=== PATIENT | female | born 1965 | race Caucasian/White ===

== ENCOUNTER 2024-05-27 07:58 | Outpatient (OUT) | payer OTHER, SELFPAY ==
[2024-05-27 08:22] LABS: Basophils Absolute Auto 0.1 10^3/uL (0.0-0.1); Eosinophils Absolute Auto 0.1 10^3/uL (0.0-0.7); Eosinophils Percent Auto 1.5 % (0.9-7.0); Hematocrit 42.6 % (36.0-48.0); Hemoglobin 14.3 g/dL (12.0-16.0); Immature Granulocytes Abs Auto 0.01 10^3/uL (0.00-0.03); Immature Granulocytes Pct Auto 0.2 % (0.0-0.5); Lymphocytes Absolute Auto 1.2 10^3/uL (1.2-3.8); Lymphocytes Percent Auto 25.9 % (20.5-60.0); Mean Corpuscular HGB Conc 33.6 g/dL (29.9-35.2); Mean Corpuscular Hemoglobin 30.4 pg (26.7-34.0); Mean Corpuscular Volume 90.4 fL (81.0-99.0); Mean Platelet Volume 10.7 fL (9.5-13.5); Monocytes Absolute Auto 0.4 10^3/uL (0.3-0.8); Monocytes Percent Auto 7.9 % (1.7-12.0); Neutrophils Percent Auto 63.5 % (43.0-75.0); Platelet Count 205 10^3/uL (150-450); Red Blood Count 4.71 10^6/uL (4.20-5.40); Red Cell Distribution Width 12.4 % (11.0-15.0); White Blood Count 4.8 10^3/uL (4.0-11.0)
[2024-05-27 09:00] LABS: Alanine Aminotransferase 18 U/L (14-59); Albumin Globulin Ratio 1.3; Alkaline Phosphatase 48 U/L (46-116); Anion Gap 12.2; Aspartate Amino Transferase 15 U/L (15-37); BUN Creatinine Ratio 17.8; Bilirubin Total 0.5 mg/dL (0.2-1.0); Carbon Dioxide 28.1 mmol/L (21.0-32.0); Chloride 103 mmol/L (98-107); Chol HDL Ratio 2.6; Cholesterol 182 mg/dL (<=200); Estimated GFR (African America >60 (>=60); Estimated GFR (Non-African Ame 53 (>=60); Globulin 3.1 g/dL; Glucose 99 mg/dL (74-106); HDL Cholesterol 70 mg/dL (40-60); Potassium 4.3 mmol/L (3.5-5.1); Sodium 139 mmol/L (136-145); Total Protein 7.1 g/dL (6.4-8.2); Triglycerides 59 mg/dL (<=150); VLDL CHOLESTEROL 11.8 mg/dL
== END 2024-05-27 07:59 | disposition home or self-care (01) ==
LOC: LAB 07:58
PROVIDERS: PCP Internal Medicine; Visit Provider Internal Medicine
DX: Z00.00 Encounter for general adult medical examination without abnormal findings (principal)
CPT/HCPCS: 36415; 80053; 80061; 85025

== ENCOUNTER 2025-01-06 07:45 | Outpatient (OUT) | payer OTHER, SELFPAY ==
--- OUTSIDE RECORDS SUMMARY | 2025-01-06 07:48 | XMS_ITS | CCD ---
Author Organization [facility] Care Team Providers Care Improvement Lead Name Role Phone Yohannes Newman Primary Care Provider [phone] Ryley Newman DO Primary Care Provider Ryley Newman Unavailable Asaad, Imad Unavailable MD Thony Cooper Attending Provider DO Ryley Newman Primary Care Provider [phone] Asaad, Imad Admitting Unavailable Ankurad, Imad Attending Unavailable Ryley Newman Primary Care Unavailable JOVAN, DR FAROOQ Admitting Unavailable BALL, DR FAROOQ Attending Unavailable JOVAN, DR FAROOQ Primary Care Unavailable JOVAN, DR FAROOQ Consulting Unavailable JOVAN, DR FAROOQ Admitting Unavailable JOVAN, DR FAROOQ Attending Unavailable JOVAN, DR FAROOQ Primary Care Unavailable BALL, DR FAROOQ Consulting Unavailable FILE, MARIAM Admitting Unavailable FILE, MARIAM Attending Unavailable JOVAN, DR FAROOQ Primary Care Unavailable FILE, MARIAM Quevedo Unavailable Ryley Newman DO Primary Care Provider Yohannes Newman Primary Care Provider [phone] HAYLIE MEDELLIN Attending Unavailable Ryley Newman DO Primary Care Provider RYLEY NEWMAN Primary Care Unavailable FILE, MARIAM Norton Attending Unavailable FILE, MARIAM Norton Referring Unavailable RYLEY NEWMAN Primary Care Unavailable JEAN HILL Referring Unavailable RYLEY NEWMAN Primary Care Unavailable RYLEY NEWMAN Primary Care Unavailable JEAN HILL Referring Unavailable MARIELLA VELASQUEZ Attending Unavailable Allergies Allergy Classification Reported Allergen(s) Allergy Type Date of Onset Reaction(s) Facility (20 sources) Penicillins; Translations: [PENICILLINS] Propensity to adverse reactions 5 [facility] Work Phone: (1 source) Penicillins Drug allergy (disorder) 3 [facility]ository (1 source) Penicillins Drug allergy (disorder) 5 [facility] Rep[facility] (1 source) Penicillins Propensity to adverse reactions 5 [facility] Work Phone: Medications Current Medications Medication Drug Class(es) Dates Sig (Normalized) Sig (Original) aspirin 81 mg delayed release oral tablet (20 sources) Platelet Aggregation Inhibitor, Nonsteroidal Anti-inflammatory Drug Start: 06-09-2019 take 1 tablet by mouth once daily aspirin, enteric coated (ECOTRIN LOW STRENGTH) 81 mg EC tablet Take 1 tablet by mouth once daily. 06/09/2019 Active Comment on above: Take 1 tablet by oanh th once daily. calcium carbonate 1250 mg oral tablet (6 sources) take 1 tablet by mouth every twelve hours Calcium 500 MG 1 tablet with meals Orally Twice a day Active CALCIUM CITRATE/VITAMIN D3 (CITRACAL + D ORAL) (20 sources) CALCIUM CITRATE/VITAMIN D3 (CITRACAL + D ORAL) Take by mouth once daily. Active CALCIUM CITRATE/ VITAMIN D3 (CITRACAL + D ORAL) Take by mouth once daily. 0 Active Comment on above: Take by mouth once d aily. cholecalciferol 0.05 mg oral tablet (20 sources) Vitamin D Start: 01-08-20 11 take 1 tablet by mouth once daily cholecalciferol (VITAMIN D3) 50 mcg (2,000 unit) tablet Take 1 tablet by mouth once daily. 0 01/07/2011 Active take 1 tablet by oanh th every twenty-four hours Vitamin D 50 MCG (2000 UT) 1 tablet Orally Once a day Active Comment on above: Take 1 tablet by oanh th once daily. Clenpiq 10-3.5-12 MG-GM -GM/175ML (3 sources) Start: 01-11-2023 Clenpiq 10-3.5-12 MG-GM -GM/175ML 175ml at 3pm, 175ml at 9pm Orally twice a day for 1 days Dec, Active Fish Oils (6 sources) take 1 capsule by mouth once daily Fish Oil 1000 MG 1 capsule Orally Once a day Active iv contrast (will be provided with radiology test) (2 sources) Start: 06-10-2023 End: 06-11-2023 iv contrast (will be provided with radiology test) MRI Breast ALONA Inject, intravenously, once for 1 dose. No IV access, insert saline lock prior to the beginning of sedation, infusion, injection of imaging exam. Discontinue saline lock post exam. If Pt has a central line or IVAD, may access for administration according to line specific nursing protocol. Once exam is complete flush line and de-access according to line specific nursing protocol in the MR contrast administration guidelines link 1 Each 0 06/10/2023 06/11/2023 Active Start: 11-27-2022 End: 11-28-2022 iv contrast (will be provide d with radiology test) MRI Breast ALONA Inject, intravenously, once for 1 dose. No IV access, insert saline lock prior to the beginning of sedation, infusion, injection of imaging exam. Discontinue saline lock post exam. If Pt has a central line or IVAD, may access for administration according to line specific nursing protocol. Once exam is complete flush line and de-access according to line specific nursing protocol in the MR contrast administration guidelines link 1 Each 0 11/27/2022 11/28/2022 Active Comment on above: MRI Breast ALONA Injec t, intravenously, once for 1 dose. No IV access, insert saline lock prior to the beginning of sedation, infusion, injection of imaging exam. Discontinue saline lock post exam. If Pt has a central line or IVAD, may access for administration according to line specific nursing protocol. Once exam is complete flush line and de-access according to line specific nursing protocol in the MR contrast administration guidelines link [id number]-dha-epa- phospho-ast 441-72-68-50 mg cap (20 sources) take 3 capsules by mouth once daily ssbiu-xk-0-dha-epa -phospho-ast 818-43-66-50 mg cap Take by mouth once daily. Active take 3 capsules by m outh once daily vvfoj-ot-7-snc-vst-keqnhof-ast 300-90-24 -50 mg cap Take by mouth once daily. 0 Active Comment on above: Take by mouth once d aily. Multi For Her - (6 sources) Multi For Her - as directed Orally Active multivitamin ORAL tablet (20 sources) Start: 1 take 1 tablet by mouth once daily multivitamin ORAL tablet Take 1 tablet by mouth once daily. 100 tablet 4 01/07/2011 Active Comment on above: Take 1 tablet by oanh th once daily. Multivitamin preparation (1 source) Start: 3 take 1 tablet by mouth once daily Multivitamin Active 1 TAB PO Daily January 22, 2023 12:00am polyethylene glycol 3350 [id number] mg / potassium chloride 2970 mg / sodium bicarbonate 6740 mg / sodium chloride 5860 mg / sodium sulfate 83959 mg powder for oral solution (5 sources) Osmotic Laxative Start: 3 take 236 g by mouth once daily Golytely 236 GM as directed Orally once daily for 1 days Nov, Active Problems Active Problems Problem Classification Problem Date Documented Date Episodic/Chronic Nonmalignant breast conditions (20 sources) Fibrocystic changes of bilateral breasts; Translations: [Diffuse cystic mastopathy of right breast] Onset: 10-09-2015 Chronic Nutritional deficiencies (7 sources) Vitamin D deficiency; Translations: [Vitamin D deficiency, unspecified] Chronic Osteoporosis (20 sources) Postmenopausal osteoporosis; Translations: [Age-related osteoporosis without current pathological fracture] Onset: 05-29-2022 Chronic Other aftercare (6 sources) Patient encounter status; Translations: [Other halfway (current) drug therapy] Episodic Other aftercare (2 sources) Long-term current use of drug therapy; Translations: [Other halfway (current) drug therapy] 07-05-2024 Episodic Other non-traumatic joint disorders (6 sources) Arthralgia of the pelvic region and thigh; Translations: [Pain in right hip] Episodic Residual codes; unclassified (1 source) Postmenopausal state; Translations: [Asymptomatic menopausal state] Episodic Residual codes; unclassified (1 source) History of breast biopsy with benign finding; Translations: [Other specified postprocedural states] 07-05-2024 Episodic Thyroid disorders (9 sources) Subclinical hypothyroidism; Translations: [Other specified hypothyroidism] Onset: 01-28-2023 Chronic Unclassified (1 source) Encounter for screening for malignant neoplasm of colon; Translations: [Encounter for screening for malignant neoplasm of colon] Onset: 01-22-2023 Unclassified (1 source) Dense breasts; Translations: [Dense breasts] Onset: 08-03-2014 Past or Other Problems Problem Classification Problem Date Documented Date Episodic/Chronic Esophageal disorders (6 sources) Esophageal disorders; Translations: [Gastro-esophageal reflux disease with esophagitis, without bleeding] Nonmalignant breast conditions (19 sources) Breast finding ; Translations: [Dense breasts] Onset: 07-08-2011 Resolved: 11-28-2018 08-03-2014 Episodic Other aftercare (2 sources) Other rat exterminator (current) drug therapy; Translations: [OTH SENIOR CARE CURRENT DRUG THERAPY] Onset: 12-25-2022 Episodic Other bone disease and musculoskeletal deformities (20 sources) Osteopenia; Translations: [Other specified disorders of bone density and structure, unspecified site] Onset: 06-09-2019 Episodic Other female genital disorders (20 sources) Vaginal dryness; Translations: [Other specified noninflammatory disorders of vagina] Onset: 11-28-2018 11-28-2018 Episodic Other female genital disorders (1 source) Other specified noninflammatory disorders of vagina; Translations: [Vaginal dryness] Onset: 11-28-2018 Episodic Other screening for suspected conditions (not mental disorders or infectious disease) (20 sources) Inconclusive mammography finding; Translations: [Inconclusive mammogram] Onset: 08-03-2014 Episodic Residual codes; unclassified (20 sources) Family history of breast cancer; Translations: [Family history of malignant neoplasm of breast] Onset: 04-28-2007 Episodic Residual codes; unclassified (1 source) Other specified postprocedural states; Translations: [History of benign breast biopsy] Onset: 07-05-2024 Episodic Residual codes; unclassified (1 source) Family history of malignant neoplasm of breast; Translations: [Family history of breast cancer] Onset: 07-05-2024 Episodic Results Test Name Value Interpretation Reference Range Facility BD DXA - AXIAL SKELETON -NBo n 07-05-2024 BD DXA - AXIAL SKELETON -NB * * *Final Report* * * DATE OF EXAM: Jul 05 2024 8:18AM M1B 0804 - BD DXA - AXIAL SKELETON -NB / PROCEDURE REASON: multiple diagnoses * * * * Physician Interpretation * * * * EXAMINATION: DXA BONE DENSITOMETRY BD DXA TRAB BONE SCORE (TBS)-NB, BD DXA - AXIAL SKELETON -NB PATIENT DEMOGRAPHICS: Age: 58 years, Gender: Female SCANNER INFORMATION: DXA Model: [employer] [id number] Date Scanned: 07/05/2024 8:18 AM CLINICAL HISTORY: DIAGNOSTIC Osteoporosis, post menopausal Encounter for long-term (current) use of medications . RISK FACTORS FOR OSTEOPOROSIS AND ASSOCIATED FRACTURES REPORTED BY THIS PATIENT: Please refer to Bone Health Questionnaire in the EMR CURRENT THERAPY: Please refer to Bone Health Questionnaire in the EMR TECHNICAL LIMITATIONS: Degenerative disease of the spine RESULTS: Lumbar Spine (L1, L2, L3, L4): Total BMD: 0.873 g/cm2, T-score: -1.6, Z-score: -0.3 TBS T-SCORE -1.1 Lumbar spine: 05/29/22: 0.810 Statistically significant increase 7.7% Left Femoral Neck: 0.566 g/cm2, T-score -2.6, Z-score -1.3 TBS T-SCORE -2.4 Left Femoral Neck: 05/29/22: 0.526 Statistically significant increase 7.5% Left Total Hip: 0.778 g/cm2, T-score -1.3, Z-score -0.5 Left Total Hip: 05/29/22: 0.757 No statistically significant change CHANGE IS STATISTICALLY SIGNIFICANT IN THE SPINE OR HIP IF GREATER THAN OR EQUAL TO 0.04 g/cm2 VERTEBRAL FRACTURE ASSESSMENT Not performed. TRABECULAR BONE ASSESSMENT TBS score: 1.389 Bone micro-architecture: normal (> 1.310) IMPRESSION: THE LOWEST T-SCORE IS -2.6 IN THE LEFT HIP THE LOWEST TBS T-SORE -2.4 LEFT FEMORAL NECK 1) DIAGNOSIS (based on BMD alone): OSTEOPOROSIS TBS CHANGED THE DIAGNOSIS FROM OSTEOPOROSIS TO OSTEOPENIA NORMAL BONE ARCHITECTURE INCREASE IN BMD - Caution: Medical conditions other than osteoporosis may cause low bone density, such as osteomalacia or renal osteodystrophy. Clinical correlation is necessary. 2) FRACTURE RISK (based on BMD and TBS) - HIGH - Caution: Fracture risk may be increased independent of BMD in patients with corticosteroid use, age greater than 65 years, or a history of prior fragility fracture. - FRAX was not calculated: bisphosphonate currently or within the last 2 years RECOMMENDATIONS: Follow-up in 2-3 years or as clinically indicated. Patients that are taking corticosteroids, are transplant recipients or have hyperparathyroidism should have annual follow-up. Follow-up scans should always be done on the same machine for accurate comparison. FOR MORE INFORMATION ABOUT DIAGNOSIS AND TREATMENT: [facility] for Osteoporosis and Metabolic Bone Disease:? www.ccf.org/arthritis /osteo National Osteoporosis Foundation:? www.nof.org International Society of Clinical Densitometry www.iscd.org Section Maintainer: amrit Transcribe Date/Time: Jul 05 2024 8:19A Dictated by : ANTOLIN BYNUM MD This examination was interpreted and the report reviewed and electronically signed by: ANTOLIN BYNUM MD on Jul 06 2024 9:11AM EST [id number] N -2.6 Normal [facility] BD DXA TRAB BONE SCORE (TBS) -NBon 07-05-2024 BD DXA TRAB BONE SCORE (TBS)-NB * * *Final Report* * * DATE OF EXAM: Jul 05 2024 8:18AM M1B 0801 - BD DXA TRAB BONE SCORE (TBS)-NB / PROCEDURE REASON: multiple diagnoses * * * * Physician Interpretation * * * * EXAMINATION: DXA BONE DENSITOMETRY BD DXA TRAB BONE SCORE (TBS)-NB, BD DXA - AXIAL SKELETON -NB PATIENT DEMOGRAPHICS: Age: 58 years, Gender: Female SCANNER INFORMATION: DXA Model: A10 [employer] [id number] Date Scanned: 07/05/2024 8:18 AM CLINICAL HISTORY: DIAGNOSTIC Osteoporosis, post menopausal Encounter for long-term (current) use of medications . RISK FACTORS FOR OSTEOPOROSIS AND ASSOCIATED FRACTURES REPORTED BY THIS PATIENT: Please refer to Bone Health Questionnaire in the EMR CURRENT THERAPY: Please refer to Bone Health Questionnaire in the EMR TECHNICAL LIMITATIONS: Degenerative disease of the spine RESULTS: Lumbar Spine (L1, L2, L3, L4): Total BMD: 0.873 g/cm2, T-score: -1.6, Z-score: -0.3 TBS T-SCORE -1.1 Lumbar spine: 05/29/22: 0.810 Statistically significant increase 7.7% Left Femoral Neck: 0.566 g/cm2, T-score -2.6, Z-score -1.3 TBS T-SCORE -2.4 Left Femoral Neck: 05/29/22: 0.526 Statistically significant increase 7.5% Left Total Hip: 0.778 g/cm2, T-score -1.3, Z-score -0.5 Left Total Hip: 05/29/22: 0.757 No statistically significant change CHANGE IS STATISTICALLY SIGNIFICANT IN THE SPINE OR HIP IF GREATER THAN OR EQUAL TO 0.04 g/cm2 VERTEBRAL FRACTURE ASSESSMENT Not performed. TRABECULAR BONE ASSESSMENT TBS score: 1.389 Bone micro-architecture: normal (> 1.310) IMPRESSION: THE LOWEST T-SCORE IS -2.6 IN THE LEFT HIP THE LOWEST TBS T-SORE -2.4 LEFT FEMORAL NECK 1) DIAGNOSIS (based on BMD alone): OSTEOPOROSIS TBS CHANGED THE DIAGNOSIS FROM OSTEOPOROSIS TO OSTEOPENIA NORMAL BONE ARCHITECTURE INCREASE IN BMD - Caution: Medical conditions other than osteoporosis may cause low bone density, such as osteomalacia or renal osteodystrophy. Clinical correlation is necessary. 2) FRACTURE RISK (based on BMD and TBS) - HIGH - Caution: Fracture risk may be increased independent of BMD in patients with corticosteroid use, age greater than 65 years, or a history of prior fragility fracture. - FRAX was not calculated: bisphosphonate currently or within the last 2 years RECOMMENDATIONS: Follow-up in 2-3 years or as clinically indicated. Patients that are taking corticosteroids, are transplant recipients or have hyperparathyroidism should have annual follow-up. Follow-up scans should always be done on the same machine for accurate comparison. FOR MORE INFORMATION ABOUT DIAGNOSIS AND TREATMENT: [facility] Osteoporosis and Metabolic Bone Disease:? www.ccf.org/arthritis /osteo National Osteoporosis Foundation:? www.nof.org International Society of Clinical Densitometry www.iscd.org Section Maintainer: amrit Transcribe Date/Time: Jul 05 2024 8:19A Dictated by : ANTOLIN BYNUM MD This examination was interpreted and the report reviewed and electronically signed by: ANTOLIN BYNUM MD on Jul 06 2024 9:11AM EST [id number] N -2.6 Normal [facility] CNOVon 07-05-2024 CNOV Office Visit ([facility] ) JESSICA JAMES ([id number]) 1965 F Date Time Provider Department 07/05/24 10:00 AM MARIELLA VELASQUEZ During your visit today, we recorded the following information about you: Weight Height 66.7 kg 1.727 m Mariella Velasquez PA-C 07/05/2024 10:05 AM Signed MEDICAL BREAST Jessica James HISTORY of PRESENT ILLNESS: Jessica James is a 58 year old postmenopausal woman from [place], [place] (1[place] hours away) who presents to the [facility] today for her screening MRI and a follow up clinical exam. She is followed in the high risk clinic due to her extremely dense breasts, history of biopsies, and FH of breast cancer in her mother. Last seen by Jean Hill 12/2023. She presents today with her . 03/2017 she was given a prescription for tamoxifen but she decided against it. She is not interested in chemoprevention with SERM or AI. She deals with excessive vaginal dryness and dyspareunia and now has osteoporosis. She established with Dr. Marshall 11/24/2022 and started Reclast. She is not interested in vaginal estrogen for her vaginal dryness. At one point she had seriously contemplated RRM but insurance would not cover it. History pertaining to prior breast biopsies, genetic reports, pathology reports, treatment summaries, personal, social and family history has been extracted from Jean Hill's note dated 01/05/2024. Vitamin D 25 Hydroxy (ng/mL) Date Value 12/10/2023 57.2 11/28/2018 59.0 She takes Vitamin D 2000IU, Ca/D daily and MVI. BMD: 05/29/22 significant decreased of BMD of 12.8% in the left femoral neck. Tscore -2.9. She is followed by Dr. Marshall since 11/24/2022 and was given Reclast. Tolerated it well. PERSONAL BREAST HISTORY: Past breast history (prior to this encounter) is as follows: Breast biopsy: Yes, In 02/2010 she had a right core biopsy showing intraductal papilloma at 11:00. 02/2010 left core biopsy 2:00 showing radial scar and 6:00 showing benign apocrine microcysts and florid UDH. 05/2010 she had bilateral needle localization excisions showing UDH/papilloma on the right and a radial scar on the left. In 01/2011 she had a left core showing fibroadenomatous stroma and UDH. 05/2012 she had two left core biopsies at 12:00 showing stromal fibrosis 05/2015 had a left core biopsy showing stromal fibrosis and UDH. Breast cysts: No Breast surgery: Yes, as above, alona 05/2010 Breast cancer: No CANCER SURVEILLANCE: Mammograms: 01/05/2024 Gustavo - negative Breast MRI: 06/10/2023 - negative Colonoscopy: 2022, one benign polyp. Done at [facility]. RISK FACTORS FOR BREAST CANCER: Age at the onset of menses: 15 years of age. P: 1 daughter Age at the of first child: 29 years of age. She breast fed for 6 months total Age at menopause: 49 years of age. Post-menopausal hormone therapy: No She has had a complete hysterectomy (ROSARIO BSO) 08/2015 with negative path per her report and her hot flashes have resolved. History of Mantle Radiation prior to the age of 30: No BMI: Body mass index is 22.35 kg/m?. Weight 147 lb stable Mammographic density: The breasts are extremely dense which limits the sensitivity of mammography Personal History of Benign Atypical Breast Biopsy: No Alcohol use: occasional PAST MEDICAL HISTORY: PAST MEDICAL HISTORY Diagnosis Date Bilateral fibrocystic breast changes Dense breasts History of colonic polyps 2022 [facility], benign Osteoporosis left hip 05/29/2022 There HAS BEEN been 12.8% decline from prior testing Patient specifically denies history of: DVT, PE, Migraine headaches, Abnormal uterine bleeding, Abnormal uterine biopsies. PAST SURGICAL HISTORY: PAST SURGICAL HISTORY Procedure Laterality Date BREAST RIGHT FINE NEEDLE ASPIRATION 03/19/2010 BX BREAST NEEDLE CORE W/O IMAGING GUIDANCE SPX 03/19/2010 right breast 11:00 BX BREAST NEEDLE CORE W/O IMAGING GUIDANCE SPX 03/19/2010 left breast 2:00 and 6:00 COLONOSCOPY SCREENING 01/22/2023 benign hyperplastic polyp /repeat 10 yrs / [facility] DILATION AND CURETTAGE DXAND/THER NONOBSTETRIC ~1995 Dilation AND curettage DXA BONE DENSITY, AXIAL EXTRACTION, ERUPTED TOOTH OR EXPOSED ROOT (ELEVATION AND/OR FORCEPS REMOVAL) wisdom teeth extraction OPTX FEM FX PROX END NCK INT FIXJ/PROSTC RPLCMT ~1982 Right femur Fracture surgical repair SOCIAL HISTORY: Social History Tobacco Use Smoking status: Never Smokeless tobacco: Never Vaping Use Vaping status: Never Used Substance Use Topics Alcohol use: Yes Comment: occasionally Drug use: No Caffeine intake: occasional chocolate Exercise: 30 minutes/5 times a week or more FAMILY HISTORY: Family history of breast cancer: Mother (diagnosed at 55; from metastatic disease at 64; no genetic testing). Family history of ovarian cancer: None Num (more content not included)... Normal [facility] MRI BREAST WO/W IVCON BILon 07-05-2024 MRI BREAST WO/W IVCON ALONA * * *Final Report* * * DATE OF EXAM: Jul 05 2024 9:09AM ABM 0773 - MRI BREAST WO/W IVCON ALONA / PROCEDURE REASON: multiple diagnoses * * * * Physician Interpretation * * * * [place] [address] HISTORY: Patient is 58 years old and is seen for diagnostic evaluation of high risk screening. COMPARISON STUDIES: The present examination has been compared to prior imaging studies dated 05/29/2022 (MRI), 11/27/2022 (mammogram), 06/10/2023 (MRI) and 01/05/2024 (mammogram). BREAST MRI: TECHNIQUE: The patient was studied using the dedicated breast coil in the Siemens 1.5 Talisha scanner. Initial axial T1W NFS, STIR imaging was carried out followed by axial T1-weighted GRE imaging both before and after IV administration of 13 ml of Dotarem. Subsequently, subtraction imaging and 3-D reconstruction were completed on an independent workstation. An additional 6-zhufmn-[id number] resolution sequence was performed after the first two 1 minute post-contrast sequences. Complex volumetric analysis requiring post processing was performed using a semi-automated software Dynacad, on an independent workstation by the physician, with images created, reviewed, and archived. There is heterogeneous fibroglandular tissue. There is minimal background parenchymal enhancement. The background parenchymal enhancement is symmetrical. There are benign postoperative changes in both breasts. There are multiple biopsy clips in the left breast in correlation with mammographic findings. No enhancing mass is identified in either breast. No pathologically enlarged axillary or internal mammary lymph nodes are identified. There has been no significant interval change. IMPRESSION: Benign findings. No enhancing mass is identified in either breast. Negative for lymphadenopathy. Return to annual mammographic screening schedule/follow-up with ACR/NCCN guidelines is recommended. BI-RADS Category 2: Benign Interpreting Radiologist: Lacy Coats M.D. Electronically signed on: 07/06/2024 Section Maintainer: EDUARDA Transcribe Date/Time: Jul 05 2024 8:37A Dictated by : CHELSY NAGY MD This examination was interpreted and the report reviewed and electronically signed by: LACY COATS MD on Jul 06 2024 9:05AM EST [id number] Normal [facility] CNCOon 05-17-2024 CNCO Letter Text Normal [facility] T3, TOTAL (TRIIODOTHYRONINE) on 01-29-2023 T3, TOTAL 80 ng/dL Normal 71-180 [facility] Comment on above: Performed By: #### T 3TOTAL #### [facility] [address] [place] [address] Dr. Nando Quijano FREE T4on 01-28-2023 Free T4 [Mass/Vol] 0.83 ng/dL Normal 0.76-1.46 [facility] Comment on above: Performed By: #### F T4 #### [facility] [address] [address] [address] Nando Quijano TSHon 01-28-2023 TSH 4.262 uIU/mL Critically high 0.358-3.740 [facility] Comment on above: Performed By: #### T SH #### [facility] [address] [place] [address] Dr. Nando Messina 01-22-2023 L - -------- Specimen: [id number] Received: 01/22/23-1023 Status: BRIAN [place] Num: [id number] Spec Type: Surgical Subm Dr: Thony Cooper MD Tissues: A Colon Biopsy (SIGMOID NODULE) B Colon Biopsy (RECTAL POLYP) C Colon Biopsy (LARGE ANAL PAPILLAE) Procedures: HE/6, Gross/Micro L4/3 -------- Age/ Patient Sex Location Account Attending Physician -------- Jessica Jmaes 57/F [id number] Thony Cooper MD -------- SPEC NUM: [id number] RECD: 01/22/23 STATUS: BRIAN [place] NUM: [id number] RAF: 01/22/23 DR: Thony Cooper MD ENTERED: 01/22/[address] [facility] [address]: SPEC TYPE: Surgical DEPT: S ORDERED: HE/6, Gross/Micro L4/3 ORDERED: HE/6, Gross/Micro L4/3 Pathological Diagnosis A. Colon, sigmoid, nodule, biopsy: - Colonic mucosal fold. - Negative for adenoma/dysplasia. B. Rectum, polyp, biopsy: - Hyperplastic polyp. C. Anus, papilla, biopsy: - Anorectal (colon and squamous) mucosal fold. - Negative for adenoma/dysplasia. Clinical Information Screening Gross Description A. Received in formalin labeled with the patient's name, number and sigmoid nodule are two fragments of soft todd tissue measuring 0.2 x 0.2 x 0.1 cm and 0.3 x 0.2 x 0.1 cm. Entirely submitted in one cassette labeled A1. B. Received in formalin labeled with the patient's name, number and rectal polyp is one fragment of soft todd tissue measuring 0.3 cm. Entirely submitted in one cassette labeled -------- Specimen: [id number] Received: 01/22/23 Status: BRIAN Ivon Num: [id number] Spec Type: Surgical Subm Dr: Thony Cooper MD Tissues: A Colon Biopsy (SIGMOID NODULE) B Colon Biopsy (RECTAL POLYP) C Colon Biopsy (LARGE ANAL PAPILLAE) Procedures: HE/6, Gross/Micro L4/3 -------- Patient: Jessica James [id number] (Continued) -------- Specimen: [id number] Received: 01/22/23 (Continued) Gross Description (Continued) Signed (signature on file) Ayah Nguyen MD 01/25/23 1117 -------- Specimen: [id number] Received: 01/22/23 Status: BRIAN [place] Num: [id number] Spec Type: Surgical Subm Dr: Thony Cooper MD Tissues: A Colon Biopsy (SIGMOID NODULE) B Colon Biopsy (RECTAL POLYP) C Colon Biopsy (LARGE ANAL PAPILLAE) Procedures: HE/Shaquille, Gross/Micro L4/3 -------- Patient: Jessica James [id number] (Continued) -------- Specimen: [id number] Received: 01/22/23 (Continued) Gross Description (Continued) B1. C. Received in formalin labeled with the patient's name, number and large anal papilla are two fragments of soft todd tissue averaging 0.2 x 0.1 x 0.1 cm. Entirely submitted in one cassette labeled C1. Microscopic Description A. Two glass slides with H E stained material have been examined. The microscopic findings support the above pathologic diagnosis. B. Two glass slides with H E stained material have been examined. The microscopic findings support the above pathologic diagnosis. C. Two glass slides with H E stained material have been examined. The microscopic findings support the above pathologic diagnosis. -------- -------- Specimen: [id number] Received: 01/22/23 Status: BRIAN [place] Num: [id number] Spec Type: Surgical Subm Dr: Thony Cooper MD Tissues: A Colon Biopsy (SIGMOID NODULE) B Colon Biopsy (RECTAL POLYP) C Colon Biopsy (LARGE ANAL PAPILLAE) Procedures: HE/6, Gross/Micro L4/3 -------- Patient: Jessica James [id number] (Continued) -------- Signed (signature on file) Ayah Nguyen MD 01/25/23 1117 Normal [facility] URIC ACID 24 HR URINEon 04- Uric Acid, Urine 30.5 mg/dL Normal Not Estab. [facility] Comment on above: Performed By: #### U PITA 24 #### [facility] [address] [place] [address] Dr. Nando Quijano Uric Acid, Urine 24hr 390.4 mg/24 hr Normal 173.7-902.1 [facility] Comment on above: Performed By: #### U PITA 24 #### [facility] [address] [place] [address] Dr. Nando Quijano CALCIUM 24 HR URINEon 2022 CALC, 24 HR UR 2223.1 mg/24 hr Critically high 100.0-300.0 [facility] Comment on above: Performed By: #### C [id number] #### [facility] [address] [place] [address] Dr. Nando Quijano UR CALCIUM 17.3 mg/dL Normal 5.1-21.0 [facility] Comment on above: Performed By: #### C [id number] #### [facility] [address] [place] [address] Dr. Nando Quijano UR TOT VOL 12650 ml/24 HR Normal [facility] Comment on above: Performed By: #### C [id number] #### [facility] [address] [place] [address] Dr. Nando Quijano CREA 24 HR URINEon 3 CREA, 24 HR UR 1302.02 mg/24 hr Normal 800.00-1, 800.0 0 [facility] Comment on above: Performed By: #### N A24U, [id number] #### [facility] [address] [place] [address] Dr. Nando Quijano URINE CREAT 101.72 mg/dL Normal 20.00-300.00 [facility] Comment on above: Performed By: #### N A24U, [id number] #### [facility] [address] [place] [address] Dr. Nando Quijano SODIUM 24 HR URINEon 023 NA, 24 HR UR 189 mmol/24 hr Normal 40-220 [facility] Comment on above: Performed By: #### N A24U, [id number] #### [facility] [address] [place] [address] Dr. Nando Quijano Sodium (U) [Moles/Vol] 148 mmol/L Critically high 30-90 [facility] Comment on above: Performed By: #### N A24U, [id number] #### [facility] [address] [place] [address] Dr. Nando Quijano UR TOT VOL 1280 ml/24 HR Normal [facility] Comment on above: Performed By: #### N A24U, [id number] #### [facility] [address] [place] [address] Dr. Nando Quijano CBC AUTO DIFFon 11-20-2022 BASO # 0.0 103/ul Normal 0.0-0.1 [facility] Comment on above: Performed By: #### C BC #### [facility] [address] [place] [address] Dr. Nando Quijano Basophils/100 WBC (Bld) 0.8 % Normal 0.2-2.0 [facility] Comment on above: Performed By: #### C BC #### [facility] [address] [place] [address] Dr. Nando Quijano EO # 0.1 103/ul Normal 0.0-0.7 [facility] Comment on above: Performed By: #### C BC #### [facility] [address] [place] [address] Dr. Nando Quijano Eosinophils/100 WBC (Bld) 1.6 % Normal 0.9-7.0 [facility] Comment on above: Performed By: #### C BC #### [facility] [address] [place] [address] Dr. Nando Quijano Erythrocyte distribution width (RBC) [Ratio] 12.3 % Normal 11.0-15.0 [facility] Comment on above: Performed By: #### C BC #### [facility] [address] [place] [address] Dr. Nando Quijano Hematocrit (Bld) [Volume fraction] 42.2 % Normal 36.0-48.0 [facility] Comment on above: Performed By: #### C BC #### [facility] [address] [place] [address] Dr. Nando Quijano Hemoglobin (Bld) [Mass/Vol] 14.4 g/dL Normal 12.0-16.0 [facility] Comment on above: Performed By: #### C BC #### [facility] [address] [place] [address] Dr. aNndo Quijano IG # 0.01 10e3/ul Normal 0.00-0.03 [facility] Comment on above: Performed By: #### C BC #### [facility] [address] [place] [address] Dr. Nando Quijano IG % 0.2 % Normal 0.0-0.5 [facility] Comment on above: Performed By: #### C BC #### [facility] [address] [place] [address] Dr. Nando Quijano LYMPH # 1.6 103/ul Normal 1.2-3.8 [facility] Comment on above: Performed By: #### C BC #### [facility] [address] [place] [address] Dr. Nando Quijano Lymphocytes/100 WBC (Bld) 32.0 % Normal 20.5-60.0 [facility] Comment on above: Performed By: #### C BC #### [facility] [address] [place] [address] Dr. Nando Quijano MANUAL DIFF REQ NO Normal [facility] Comment on above: Performed By: #### C BC #### [facility] [address] [place] [address] Dr. Nando Quijano MCH (RBC) [Entitic mass] 30.1 pg Normal 26.7-34.0 [facility] Comment on above: Performed By: #### C BC #### [facility] [address] [place] [address] Dr. Nando Quijano MCHC (RBC) [Mass/Vol] 34.1 g/dL Normal 29.9-35.2 [facility] Comment on above: Performed By: #### C BC #### [facility] [address] [place] [address] Dr. Nando Quijano MCV (RBC) [Entitic vol] 88.1 fL Normal 81.0-99.0 [facility] Comment on above: Performed By: #### C BC #### [facility] [address] [place] [address] Dr. Nando Quijano MONO # 0.4 103/ul Normal 0.3-0.8 [facility] Comment on above: Performed By: #### C BC #### [facility] [address] [place] [address] Dr. Nando Quijano Monocytes/100 WBC (Bld) 8.1 % Normal 1.7-12.0 [facility] Comment on above: Performed By: #### C BC #### [facility] [address] [place] [address] Dr. Nando Quijano NEUT # 2.9 103/ul Normal 1.4-6.5 [facility] Comment on above: Performed By: #### C BC #### [facility] [address] [place] [address] Dr. Nando Quijano Neutrophils/100 WBC (Bld) 57.3 % Normal 43.0-75.0 [facility] Comment on above: Performed By: #### C BC #### [facility] [address] [place] [address] Dr. Nando Quijano Platelet mean volume (Bld) [Entitic vol] 10.2 fL Normal 9.5-13.5 [facility] Comment on above: Performed By: #### C BC #### [facility] [address] [place] [address] Dr. Nando Quijano PLT 235 103/ul Normal 150-450 [facility] Comment on above: Performed By: #### C BC #### [facility] [address] [address] [address] Nando Quijano RBC 4.79 106/ul Normal 4.20-5.40 [facility] Comment on above: Performed By: #### C BC #### [facility] [address] [id number] Nando Quijano WBC 5.1 103/ul Normal 4.0-11.0 [facility] Comment on above: Performed By: #### C BC #### [facility] [address] [address] [address] Nando Quijano Complete Blood Count and Dif leo 11-20-2022 Anisocytosis Ql (Bld) [employer] Other Basophilic stippling LM Ql (Bld) [employer] Other RBC morphology finding Nom (Bld) [employer] Other Complete Blood Count and Diff [employer] Other Comprehensive Metabolic Pane garo 11-20-2022 Albumin [Mass/Vol] 4.500186 g/dL 3.4-5.0 g/dL [employer] Other Calcium [Mass/Vol] 9.4932875 mg/dL 8.5-10.1 mg/ dL [employer] Other CO2 [Moles/Vol] 28.61965224 mmol/L 21.0-3 2.0 mmol/L [employer] Other Creatinine [Mass/Vol] 1.92623045 mg/dL 0.55-1.02 mg/dL [employer] Other Potassium [Moles/Vol] 3.16159957 mmol/L 3.5-5.1 mmol/L [employer] Other Protein [Mass/Vol] 7.578515 g/dL 6.4-8.2 g/dL [employer] Other Urea nitrogen [Mass/Vol] 16.6078730 mg/dL 7.0-18.0 mg/dL [employer] Other Comprehensive Metabolic Panel see note [employer] Other Comprehensive Metabolic Panel 146 mmol/L Critically high 136-145 mmol/L [employer] Other Comprehensive Metabolic Panel 103 mg/dL 74-106 mg/dL [employer] Other Comprehensive Metabolic Panel 56 mL/min/1.73m2 Critically low >=60 mL/min/1.73m2 [employer] Other Comprehensive Metabolic Panel >60 mL/min/1.73m2 >=60 mL/min/1.73m2 [employer] Other Comprehensive Metabolic Panel 0.9 mg/dL 0.2-1.0 mg/dL [employer] Other Comprehensive Metabolic Panel 3.2 g/dL [employer] Other Albumin/Globulin [Mass ratio] 1.4 {ratio} Normal [employer] Other Comment on above: Performed By: #### C MP, LIPID #### [facility] [address] [place] [address] Dr. Nando Quijano ALP [Catalytic activity/Vol] 69 U/L Normal 46-116 [employer] Other Comment on above: Performed By: #### C MP, LIPID #### [facility] [address] [address] [address] Nando Quijano ALT [Catalytic activity/Vol] 25 U/L Normal 14-59 [employer] Other Comment on above: Performed By: #### C MP, LIPID #### [facility] [address] [address] [address] Nando Quijano Anion gap [Moles/Vol] 15.5 mmol/L Normal [employer] Other Comment on above: Performed By: #### C MP, LIPID #### [facility] [address] [address] [address] Nando Quijano AST [Catalytic activity/Vol] 22 U/L Normal 15-37 [employer] Other Comment on above: Performed By: #### C MP, LIPID #### [facility] [address] [address] [address] Nando Quijano Chloride [Moles/Vol] 106 mmol/L Normal 98-107 [employer] Other Comment on above: Performed By: #### C MP, LIPID #### [facility] [address] [address] [address] Nando Quijano Urea nitrogen/Creatinin e [Mass ratio] 15.7 mg/mg Normal [facility] [employer] Other Comment on above: Performed By: #### C MP, LIPID #### [facility] [address] [address] [address] Nando Quijano LIPID PROFILEon 11-20-2022 CHOL-HDL RATIO NORM SEE BELOW Normal [facility] Comment on above: Result Comment: 3.3 - 4.4 LOW RISK 4.4 - 7.1 AVERAGE RISK 7.1 - 11.0 MODERATE RISK >11.0 HIGH RISK Performed By: #### C MP, LIPID #### [facility] [address] [place] [address] Dr. Nando Quijano Cholesterol in LDL [Mass/Vol] 93.8 mg/dL Normal [facility] Comment on above: Performed By: #### C MP, LIPID #### [facility] [address] [address] [address] Nando Quijano HDL NORMAL > or = 60 mg/dl - LO W CARDIOVASCULAR RISK <40 mg/dl - HIGH CARDIOVASCULAR RISK Normal [facility] Comment on above: Performed By: #### C MP, LIPID #### [facility] [address] [address] [address] Nando Quijano LDL CALC NORMAL SEE BELOW Normal [facility] Comment on above: Result Comment: <100 mg/dl OPTIMAL 100 - 129 mg/dl NEAR OR ABOVE OPTIMAL 130 - 159 mg/dl BORDERLINE HIGH 160 - 189 mg/dl HIGH >190 mg/dl VERY HIGH Performed By: #### C MP, LIPID #### [facility] [address] [address] [address] Nando Quijano VLDL CALC 17.2 mg/dL Normal [facility] Comment on above: Performed By: #### C MP, LIPID #### [facility] [address] [address] [address] Nando Quijano Lipid Panelon 11-20-2022 Lipid Panel > or = 60 mg/dl - LO W CARDIOVASCULAR RISK <40 mg/dl - HIGH CARDIOVASCULAR RISK [employer] Other Lipid Panel SEE BELOW [employer] Other Lipid Panel 93.8 mg/dL [employer] Other Lipid Panel 17.2 mg/dL [employer] Other Cholesterol [Mass/Vol] 179 mg/dL Normal <=200 [employer] Other Comment on above: Performed By: #### C MP, LIPID #### [facility] [address] [address] [address] Nando Quijano Cholesterol in HDL [Mass/Vol] 68 mg/dL Critically high 40-60 [employer] Other Comment on above: Performed By: #### C MP, LIPID #### [facility] [address] [address] [address] Nando Quijano Cholesterol.total/ Cholesterol in HDL [Mass ratio] 2.6 {ratio} Normal [employer] Other Comment on above: Performed By: #### C MP, LIPID #### [facility] [address] [address] [address] Nando Quijano Triglyceride [Mass/Vol] 86 mg/dL Normal <=150 [employer] Other Comment on above: Performed By: #### C MP, LIPID #### [facility] [address] [place] [address] Dr. Nando Quijano PROF 14(COMP METB)on 023 Albumin [Mass/Vol] 4.4 g/dL Normal 3.4-5.0 [facility] Comment on above: Performed By: #### C MP, LIPID #### [facility] [address] [address] [address] Nando Quijano Bilirubin [Mass/Vol] 0.9 mg/dL Normal 0.2-1.0 [facility] Comment on above: Performed By: #### C MP, LIPID #### [facility] [address] [address] [address] Nando Quijano Calcium [Mass/Vol] 9.5 mg/dL Normal 8.5-10.1 [facility] Comment on above: Performed By: #### C MP, LIPID #### [facility] [address] [place] [address] Dr. Nando Quijano CO2 [Moles/Vol] 28.1 mmol/L Normal 21.0-32.0 [facility] Comment on above: Performed By: #### C MP, LIPID #### [facility] [address] [place] [address] Dr. Nando Quijano Creatinine [Mass/Vol] 1.02 mg/dL Normal 0.55-1.02 [facility] Comment on above: Performed By: #### C MP, LIPID #### [facility] [address] [place] [address] Dr. Nando Quijano EGFR-AF SAMOAN >60 Normal >=60 [facility] Comment on above: Performed By: #### C MP, LIPID #### [facility] [address] [address] [address] Nando Quijano EGFR-NON AF SAMOAN 56 mL/min/1.73m2 Critically low >=60 [facility] Comment on above: Performed By: #### C MP, LIPID #### [facility] [address] [place] [address] Dr. Nando Quijano Globulin (S) [Mass/Vol] 3.2 g/dL Normal [facility] Comment on above: Performed By: #### C MP, LIPID #### [facility] [address] [address] [address] Nando Quijano Glucose [Mass/Vol] 103 mg/dL Normal 74-106 [facility] Comment on above: Performed By: #### C MP, LIPID #### [facility] [address] [address] [address] Nando Quijano Potassium [Moles/Vol] 3.6 mmol/L Normal 3.5-5.1 [facility] Comment on above: Performed By: #### C MP, LIPID #### [facility] [address] [address] [address] Nando Quijano Protein [Mass/Vol] 7.6 g/dL Normal 6.4-8.2 [facility] Comment on above: Performed By: #### C MP, LIPID #### [facility] [address] [place] [address] Dr. Nando Quijano Sodium [Moles/Vol] 146 mmol/L Critically high 136-145 [facility] Comment on above: Performed By: #### C MP, LIPID #### [facility] [address] [place] [address] Dr. Nando Quijano Urea nitrogen [Mass/Vol] 16.0 mg/dL Normal 7.0-18.0 [facility] Comment on above: Performed By: #### C MP, LIPID #### [facility] [address] [place] [address] Dr. Nando Qujiano CRISTOBAL SCREENING W Sergio 11-11 [facility] Vital Signs Date Time Vital Sign Value Performing Clinician Facility 07-05-2024 09:43-0400 Body height 172.7 cm Mariella Velasquez PA-C Work Phone: [facility] 07-05-2024 09:43-0400 Body mass index (BMI) [Ratio] 22.35 kg/m2 Mariella Velasquez PA-C Work Phone: [facility] 07-05-2024 09:43-0400 Body weight 66.68 kg Mariella Velasquez PA-C Work Phone: [facility] 01-05-2024 14:31-0400 Body temperature 97.7 [degF] Rheu Ann Work Phone: [facility] 01-05-2024 14:31-0400 Body weight 67 kg Rheu Ann Work Phone: [facility] 01-05-2024 14:31-0400 Diastolic blood pressure 80 mm[Hg] Rheu Ann Work Phone: [facility] 01-05-2024 14:31-0400 Heart rate 88 /min Rheu Ann Work Phone: [facility] 01-05-2024 14:31-0400 Systolic blood pressure 140 mm[Hg] Rheu Ann Work Phone: [facility] 01-05-2024 07:52-0400 Body height 172.7 cm Jean Hill CATTLE DEALER.FURNITURE REPAIRER Work Phone: [facility] 01-05-2024 07:52-0400 Body weight 67.59 kg Jean Hill CATTLE DEALER.FURNITURE REPAIRER Work Phone: [facility] 12-10-2023 09:21-0400 Body height 172.7 cm Mariam Marshall MD Work Phone: [facility] 12-10-2023 09:21-0400 Body temperature 98.49 [degF] Mariam File Work Phone: [facility] 12-10-2023 09:21-0400 Body weight 67.7 kg Mariam Marshall MD Work Phone: [facility] 12-10-2023 09:21-0400 Diastolic blood pressure 67 mm[Hg] Mariam Marshall MD Work Phone: [facility] 12-10-2023 09:21-0400 Heart rate 92 /min Mariam Marshall MD Work Phone: [facility] 12-10-2023 09:21-0400 Systolic blood pressure 113 mm[Hg] Mariam Marshall MD Work Phone: [facility] 06-10-2023 08:51-0400 Body height 175.3 cm Jean Ismael CATTLE DEALER.FURNITURE REPAIRER Work Phone: [facility] 06-10-2023 08:51-0400 Body weight 67.13 kg Jean Ismael CATTLE DEALER.FURNITURE REPAIRER Work Phone: [facility] 01-22-2023 08:50-0400 Diastolic blood pressure 77 mm[Hg] DO Ryley Ball Work Phone: [facility] 01-22-2023 08:50-0400 Heart rate 70 /min DO Ryley Ball Work Phone: [facility] 01-22-2023 08:50-0400 Respiratory rate 16 /min DO Ryley Ball Work Phone: [facility] 01-22-2023 08:50-0400 SaO2% (BldA) [Mass fraction] 98 % DO Ryley Ball Work Phone: [facility] 01-22-2023 08:50-0400 Systolic blood pressure 109 mm[Hg] DO Ryley Ball Work Phone: [facility] 01-22-2023 07:21-0400 Body height 175.26 cm DO Ryley Ball Work Phone: [facility] 01-22-2023 07:21-0400 Body temperature 98 [degF] DO Ryley Ball Work Phone: [facility] 01-22-2023 07:21-0400 Body weight 66.22 kg DO Ryley Ball Work Phone: [facility] 12-24-2022 15:25-0400 Diastolic blood pressure 56 mm[Hg] Rheu Ann Work Phone: [facility] 12-24-2022 15:25-0400 Heart rate 71 /min Rheu Ann Work Phone: [facility] 12-24-2022 15:25-0400 Respiratory rate 18 /min Rheu Ann Work Phone: [facility] 12-24-2022 15:25-0400 Systolic blood pressure 118 mm[Hg] Rheu Ann Work Phone: [facility] 12-24-2022 14:30-0400 Body temperature 98.1 [degF] Rheu Ann Work Phone: [facility] 11-24-2022 12:51-0500 Body height 175.3 cm Mariam Marshall MD Work Phone: [facility] 11-24-2022 12:51-0500 Body temperature 99.19 [degF] Mariam Marshall MD Work Phone: [facility] 11-24-2022 12:51-0500 Body weight 69.08 kg Mariam Marshall MD Work Phone: [facility] 11-24-2022 12:51-0500 Diastolic blood pressure 65 mm[Hg] Mariam Marshall MD Work Phone: [facility] 11-24-2022 12:51-0500 Heart rate 99 /min Mariam Marshall MD Work Phone: [facility] 11-24-2022 12:51-0500 Systolic blood pressure 120 mm[Hg] Mariam Marshall MD Work Phone: [facility] 11-16-2022 15:30-0500 Body height 175.26 cm Ryley Ball Other [employer] Other 11-16-2022 15:30-0500 Body mass index (BMI) [Ratio] 22.62 kg/m2 Ryley Ball Other [employer] Other 11-16-2022 15:30-0500 Body weight 69.49 kg Ryley Ball Other [employer] Other 11-16-2022 15:30-0500 Diastolic blood pressure 72 mm[Hg] Ryley Ball Other [employer] Other 11-16-2022 15:30-0500 Respiratory rate 12 /min Ryley Newman Other [employer] Other 11-16-2022 15:30-0500 Systolic blood pressure 118 mm[Hg] Ryley Jovan Other [employer] Other 05-29-2022 13:52-0400 Body height 175.3 cm Jean Hill CATTLE DEALER.FURNITURE REPAIRER Work Phone: [facility] 05-29-2022 13:52-0400 Body weight 67.13 kg Jean Hill CATTLE DEALER.FURNITURE REPAIRER Work Phone: [facility] Encounters Encounter Date Encounter Type Care Provider Facility Start: 01-03-2025 End: 01-03-2025 Telemedicine consultation with patient Mariam Marshall MD Work Phone: [facility] Start: 01-03-2025 End: 01-03-2025 ambulatory Mariam Marshall MD Work Phone: [facility] Comment on above: Osteoporosis, post m enopausal (Primary Dx); Encounter for long-term (current) use of medications Start: 07-05-2024 End: 07-05-2024 Patient encounter procedure Mariella Velasquez PA-C Work Phone: [facility] Comment on above: Bilateral fibrocysti c breast changes (Primary Dx); Dense breasts; Osteoporosis without current pathological fracture, unspecified osteoporosis type; Vaginal dryness; Family history of breast cancer; Encounter for screening mammogram for breast cancer; History of benign breast biopsy Start: 07-05-2024 End: 07-05-2024 ambulatory RYLEY NEWMAN Facility:[facility] Start: 07-05-2024 End: 07-05-2024 Subsequent hospital visit by physician [facility] Comment on above: Osteoporosis, post m enopausal [M81.0] Bilateral fibrocysti c breast changes [N60.11, N60.12] Start: 03-15-2024 End: 03-15-2024 ambulatory HAYLIE MEDELLIN Not Available Start: 01-05-2024 End: 01-05-2024 ambulatory Rheu Chair 5 Ann Work Phone: [facility] Comment on above: Osteoporosis, post m enopausal (Primary Dx) Start: 01-05-2024 Documentation procedure Mammography Coordinator [facility] Start: 01-05-2024 Letter encounter Mammography Coordinator [facility] Department Start: 01-05-2024 End: 01-05-2024 Patient encounter procedure Jean Hill APRN.FURNITURE REPAIRER Work Phone: [facility] Comment on above: Bilateral fibrocysti c breast changes (Primary Dx); Dense breasts; Osteoporosis without current pathological fracture, unspecified osteoporosis type; Vaginal dryness; Family history of breast cancer Start: 01-05-2024 End: 01-05-2024 Subsequent hospital visit by physician Clinic Imaging Mammo Main Mammography Comment on above: Family history of br east cancer [Z80.3] Start: 12-20-2023 Telephone encounter Mariam Marshall MD Work Phone: Rheumatology Comment on above: Appointment Start: 12-10-2023 End: 12-10-2023 Patient encounter procedure Mariam Marshall MD Work Phone: [facility] Comment on above: Osteoporosis, post m enopausal (Primary Dx); Encounter for long-term (current) use of medications Start: 12-08-2023 Telephone encounter Mariam Marshall MD Work Phone: [facility] Comment on above: Appointment Start: 06-10-2023 End: 06-10-2023 Patient encounter procedure Jean Hill APRN.FURNITURE REPAIRER Work Phone: [facility] Comment on above: Bilateral fibrocysti c breast changes (Primary Dx); Family history of breast cancer; Dense breasts; Osteoporosis without current pathological fracture, unspecified osteoporosis type; Vaginal dryness; Encounter for screening mammogram for breast cancer Start: 04-07-2023 End: 04-07-2023 ambulatory Ryley Newman Other [employer] Other Start: 04-07-2023 Telephone encounter Ryley LIPSCOMB Jovan [facility] Start: 01-28-2023 End: 01-29-[address] RYLEY NEWMAN Facility:[facility] Start: 01-22-2023 Telephone encounter Ryley Newman [facility] Start: 01-22-2023 End: 01-22-2023 ambulatory Imad Asaad Facility:[facility] Start: 01-22-2023 End: 01-22-2023 Admission to same day surgery center DO Ryley Newman Work Phone: [facility] Work Phone: Start: 01-22-2023 End: 01-22-2023 ambulatory DO Ryley Newman Work Phone: [facility] Work Phone: Start: 01-11-2023 End: 01-11-2023 ambulatory Imad Asaad Other [employer] Other Start: 01-11-2023 Telephone encounter Imad Asaad [facility] Start: 12-28-2022 End: 12-28-2022 ambulatory Ryley Newman Other [employer] Other Start: 12-28-2022 Telephone encounter Ryley Newman [facility] Start: 12-25-2022 ambulatory Mariam alonso MD Work Phone: [facility] Start: 12-25-2022 Follow-up encounter Mariam Marshall MD Work Phone: [facility] Comment on above: Follow up 24 hr. uri ne collection Start: 12-24-2022 End: 12-24-2022 ambulatory Rheu Chair 7 Ann Work Phone: Infusion Comment on above: Osteoporosis, post m enopausal (Primary Dx); Encounter for long-term (current) use of medications Start: 12-24-2022 Telephone encounter Mariam Marshall MD Work Phone: Rheumatology Comment on above: Outside Lab Results Start: 12-20-2022 End: 12-20-2022 ambulatory MARIAM MARSHALL Facility:[facility] Start: 12-11-2022 Telephone encounter Mariam Marshall MD Work Phone: Rheumatology Comment on above: Appointment Start: 12-10-2022 End: 12-10-2022 ambulatory Mariam Marshall MD Work Phone: [facility] Comment on above: Osteoporosis, post m enopausal (Primary Dx); Encounter for long-term (current) use of medications Start: 12-10-2022 End: 12-10-2022 Telemedicine consultation with patient Mariam Marshall MD Work Phone: [facility] Start: 12-07-2022 End: 12-07-2022 ambulatory Thony Cooper Other [employer] Other Start: 12-07-2022 Telephone encounter Thony Cooper [facility] Start: 11-27-2022 End: 11-27-2022 Subsequent hospital visit by physician Clinic Imaging Mammo Main Mammography Comment on above: Family history of br east cancer [Z80.3]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 to four months) may be helpful. Many women wonder about their breast density. Dense breast tissue is, in and of itself, a relatively common condition which could hide abnormalities in a screening mammogram. This information is not provided to cause undue concern; rather, it is to raise your awareness and promote discussion with your health care provider regarding the presence of dense breast tissue in addition to other risk factors. If you would like to compliment one of our caregivers you encountered today, you may do so at [email or web address]. Thank you ! documented in this encounterDunlap [facility] Hospital09-09-2022 History of Present illness Narrative* Antonietta Martin - 05/29/2022 9:45 AM EDT Radiology Service Progress Note PATIENT NAME: Jessica James DATE OF SERVICE: May 29, 2022 TIME: 9:56 AM PATIENT IDENTITY VERIFICATION COMPLETED USING TWO (2) IDENTIFIERS: Name and Date of confirmedby patient verbally. FALL SCREENING: Has the patient had 2 falls in the last year or 1 fall with injury or currently using an Ambulatory Assistive Device (Walker, Cane, Wheelchair, Crutches, etc.)? No PATIENT GENDER DATA: Female. status: : No status: NO. PATIENT RELEVANT IMPLANT DATA REVIEWED: Not Applicable RADIOLOGY DEPARTMENT: Bone Density PERIPHERAL IV DATA: Not applicable SIGNED BY: Antonietta Martin May 29, 2022 9:56 AM documented in this encounterDunlap [facility] Hospital02-22-2022 History of Present illness Narrative* Caitna Real Mammo Tech - 11/11/2021 2:15 PM EST Radiology Service Progress Note PATIENT NAME: Jessica James DATE OF SERVICE: November 11, 2021 TIME: 2:27 PM PATIENT IDENTITY VERIFICATION COMPLETED USING TWO (2) IDENTIFIERS: Name and Date of confirmedby patient verbally. FALL SCREENING: Has the patient had 2 falls in the last year or 1 fall with injury or currently using an Ambulatory Assistive Device (Walker, Cane, Wheelchair, Crutches, etc.)? No PATIENT GENDER DATA: Female. status: : No status: NO. PATIENT RELEVANT IMPLANT DATA REVIEWED: Yes RADIOLOGY DEPARTMENT: Mammography PERIPHERAL IV DATA: Not applicable SIGNED BY: Catina Real Mammo Tech November 11, 2021 2:27 PM documented in this encounterDunlap [facility] Hospital10-19-2011 History of Past illness Narrative* Problem Noted Date Resolved Date Cyst (solitary) of breast 07/08/20112018 documented as of this encounter (statuses as of 05/29/2022) [facility] of Past illness Narrative* Problem Noted Date Resolved Date Cyst (solitary) of breast 07/08/20112018 documented as of this encounter (statuses as of 05/30/2022) [facility] of Past illness Narrative* Problem Noted Date Resolved Date Cyst (solitary) of breast 07/08/20112018 documented as of this encounter (statuses as of 11/25/2022) [facility] illness Narrative* Problem Noted Date Resolved Date Cyst (solitary) of breast 07/08/20112018 documented as of this encounter (statuses as of 11/25/2022) [address]19-2011 History of Past illness Narrative* Problem Noted Date Resolved Date Cyst (solitary) of breast 07/08/20112018 documented as of this encounter (statuses as of 11/27/2022) [facility] Narrative* Problem Noted Date Resolved Date Cyst (solitary) of breast 07/08/20112018 documented as of this encounter (statuses as of 11/28/2022) [address]19-2011 History of Past illness Narrative* Problem Noted Date Resolved Date Cyst (solitary) of breast 07/08/20112018 documented as of this encounter (statuses as of 12/10/2022) [facility] Narrative* Problem Noted Date Resolved Date Cyst (solitary) of breast 07/08/20112018 documented as of this encounter (statuses as of 12/11/2022) [facility] Narrative* Problem Noted Date Resolved Date Cyst (solitary) of breast 07/08/20112018 documented as of this encounter (statuses as of 12/25/2022) [facility] Narrative* Problem Noted Date Resolved Date Cyst (solitary) of breast 07/08/20112018 documented as of this encounter (statuses as of 12/25/2022) [facility] Narrative* Problem Noted Date Resolved Date Cyst (solitary) of breast 07/08/20112018 documented as of this encounter (statuses as of 12/26/2022) [address]19-2011 History of Past illness Narrative* Problem Noted Date Diagnosed Date Resolved Date Cyst (solitary) of breast 07/08/2011 documented as of this encounter (statuses as of 06/11/2023) [facility] Narrative* Problem Noted Date Diagnosed Date Resolved Date Cyst (solitary) of breast 07/08/2011 documented as of this encounter (statuses as of 07/22/2023) [address]19-2011 History of Past illness Narrative* Problem Noted Date Diagnosed Date Resolved Date Cyst (solitary) of breast 07/08/2011 documented as of this encounter (statuses as of 12/08/2023) [address]19-2011 History of Past illness Narrative* Problem Noted Date Diagnosed Date Resolved Date Cyst (solitary) of breast 07/08/2011 documented as of this encounter (statuses as of 12/10/2023) [address]19-2011 History of Past illness Narrative* Problem Noted Date Diagnosed Date Resolved Date Cyst (solitary) of breast 07/08/2011 documented as of this encounter (statuses as of 12/21/2023) [address]19-2011 History of Past illness Narrative* Problem Noted Date Diagnosed Date Resolved Date Cyst (solitary) of breast 07/08/2011 documented as of this encounter (statuses as of 01/06/2024) [address]19-2011 History of Past illness Narrative* Problem Noted Date Diagnosed Date Resolved Date Cyst (solitary) of breast 07/08/2011 documented as of this encounter (statuses as of 01/06/2024) [address]19-2011 History of Past illness Narrative* Problem Noted Date Diagnosed Date Resolved Date Cyst (solitary) of breast 07/08/2011 documented as of this encounter (statuses as of 01/07/2024) [address]19-2011 History of Past illness Narrative* Problem Noted Date Diagnosed Date Resolved Date Cyst (solitary) of breast 07/08/2011 documented as of this encounter (statuses as of 01/08/2024) [facility] Diagnosis Bilateral fibrocystic breast changes- Primary Family history of breast cancer Family history of malignant neoplasm of breast Dense breasts Inconclusive mammogram Encounter for screening mammogram for malignant neoplasm of breast Other screening mammogram Osteopenia, unspecified location [facility] Encounter for screening for osteoporosis Special screening for osteoporosis Asymptomatic postmenopausal status [facility] Diagnosis Osteoporosis, post menopausal- Primary Encounter for long-term (current) use of medications Encounter for long-term (current) use of other medications [facility] Family history of breast cancer Family history of malignant neoplasm of breast Dense breasts Inconclusive mammogram Encounter for screening mammogram for malignant neoplasm of breast Other screening mammogram [facility] Diagnosis Osteoporosis, post menopausal- Primary Encounter for long-term (current) use of medications Encounter for long-term (current) use of other medications documented [facility] this encounter [facility] noteNo InformationNort Construct Other Evaluation note* Diagnosis Osteoporosis, post menopausal- Primary Encounter for long-term (current) use of medications Encounter for long-term (current) use of other medications documented [facility] encounter [facility]* Diagnosis Osteoporosis, post menopausal- Primary Encounter for long-term (current) use of medications Encounter for long-term (current) use of other medications documented [facility] this encounter [facility] noteNo assessment information availableSt. [facility] Work Phone: Evaluation note* Diagnosis Bilateral fibrocystic breast changes- Primary Family history of breast cancer Family history of malignant neoplasm of breast Dense breasts Inconclusive mammogram Osteoporosis without current pathological fracture, unspecified osteoporosis type Vaginal dryness Other specified symptom associated with female genital organs Encounter for screening mammogram for breast cancer documented [facility] this encounter [facility]* Diagnosis Bilateral fibrocystic breast changes Family history of breast cancer Family history of malignant neoplasm of breast Encounter for screening mammogram for malignant neoplasm of breast Other screening mammogram Dense breasts Inconclusive mammogram [facility] this encounter [facility]* Diagnosis Osteoporosis, post menopausal- Primary Encounter for long-term (current) use of medications Encounter for long-term (current) use of other medications Osteoporosis, post menopausal- Primary Encounter for long-term (current) use of medications Encounter for long-term (current) use of other medications documented [facility] this encounter [facility]* Diagnosis Osteoporosis, post menopausal- Primary Encounter for long-term (current) use of medications Encounter for long-term (current) use of other medications documented [facility] encounter [facility]* Diagnosis Osteoporosis, post menopausal- Primary documented [facility] this encounter [facility]* Diagnosis Family history of breast cancer Family history of malignant neoplasm of breast Dense breasts Inconclusive mammogram Encounter for screening mammogram for breast cancer documented [facility] this encounter [facility]* Diagnosis Bilateral fibrocystic breast changes- Primary Dense breasts Inconclusive mammogram Osteoporosis without current pathological fracture, unspecified osteoporosis type Vaginal dryness Other specified symptom associated with female genital organs Family history of breast cancer Family history of malignant neoplasm of breast [facility]* Diagnosis Bilateral fibrocystic breast changes- Primary Dense breasts Inconclusive mammogram Osteoporosis without current pathological fracture, unspecified osteoporosis type Vaginal dryness Other specified symptom associated with female genital organs Family history of breast cancer Family history of malignant neoplasm of breast Encounter for screening mammogram for breast cancer History of benign breast biopsy [facility]* Diagnosis Osteoporosis, post menopausal Encounter for long-term (current) use of medications Encounter for long-term (current) use of other medications [facility]* Diagnosis Bilateral fibrocystic breast changes Family history of breast cancer Family history of malignant neoplasm of breast Dense breasts Inconclusive mammogram [facility]* Diagnosis Osteoporosis, post menopausal- Primary Encounter for long-term (current) use of medications Encounter for long-term (current) use of other medications documented in this encounter [facility] HospitalHistory and physical note Author Thony Cooper [facility] January 22, 2023 7:52am Note Date/Time January 22, 2023 7:52am [facility] [address] [place] [address] Gastroenterology H&P Signed Patient: Jessica James MR#: [id number] : 1965 Acct:[id number] Age/Sex: 57 / F Adm Date: 3 Loc: Room: Type: [facility] Attending Dr: Thony Cooper MD Copies to: DO Thony Live MD~ Date of Service: 01/22/2023 HISTORY & PHYSICAL: Patient's history with special attention to the cardiovascular, pulmonary systems and the current problem was reviewed with the patient immediately prior to the procedure. Present medications and doses reviewed in the EMR. Allergies and pertinent laboratory tests were also reviewedat this time in the EMR. The physical examination, as below, was then performed. Indication, assessment and HPI: 57-year-old female here for screening colonoscopy Family history of GI malignancy? No PHYSICAL EXAMINATION Mouth and Pharynx : Moist mucus membranes, normal dentition Cardiac: Regular rate, regular rhythm Pulmonary: Clear to auscultation bilaterally, no wheezing Neurological: Alert and oriented x3, no focal deficits noted Abdomen: Abdomen soft, non-tender REVIEW OF SYSTEMS Constitutional: Denies malaise, fevers Cardiovascular: Denies chest pain, palpitations Respiratory: Denies shortness of breath, wheezing Gastrointestinal: Per HPI Genitourinary: Denies dysuria, polyuria Musculoskeletal: Denies joint swelling, joint stiffness Neurological: Denies numbness, tingling Integumentary: Denies rashes, skin lesions Endocrine: Denies fatigue, weight loss Written informed consent obtained from the patient. Risks (including but not limited to perforation, infection, bloating, bleeding, need for emergent surgeryand loss of life), benefits and alternatives explained and questions answered. The patient verbalized understanding. Based on history patient is an appropriate candidate for the procedure. Thony Cooper M.D. Documented By: Thony Cooper MD 01/22/23 0759 Signed By: <Electronically signed by Thony Cooper MD> 01/22/23 0757 [facility] Work Phone: History general Narrative - Reported* Type Description Date Medical History Hip pain, right Medical History Gastro-esophageal re flux disease with esophagitis, without bleeding Medical History Hip pain, right Surgical History ROSARIO/BSO Surgical History PELVIC ABSCESS Surgical History ORIF FEMUR FX Surgical History BREAST BX Surgical History FERTILITY EVALUATION Hospitalization History SEE SURGICAL HX [employer] App Other History general Narrative - Reported* Type Description Date Medical History Hip pain, right Medical History Gastro-esophageal re flux disease with esophagitis, without bleeding Medical History Hip pain, right Surgical History ROSARIO/BSO Surgical History PELVIC ABSCESS Surgical History ORIF FEMUR FX Surgical History BREAST BX Surgical History FERTILITY EVALUATION Surgical History Colonoscopy w/ polypectomy 02/06 23 Hospitalization History SEE SURGICAL HX [employer] App Other Hospital Discharge instructions Additional Instructions DISCHARGE INSTRUCTIONS FOR COLONOSCOPY WHAT TO EXPECT: - You may feel full, gassy or cramping after your procedure. In some cases, this may be from a few hours to a day. Walking may help relieve the discomfort. - If you have polyp(s) removed you may note some minor bloody discharge after your first bowel movements. - You should begin to recover from anesthesia within 1 hour of the procedure, however may feel groggy for the next 24 hours. DO's AND DON'Ts: - Call your doctor right away if you have a hard abdomen, severe pain, are passing lots of bright red blood or clots. - Call your doctor if you develop any rashes, hives or difficulty breathing. - Let your doctor know if you have not had a bowel movement by 3 days after your procedure. - If you take 81 mg aspirin for your heart it is safe to resume this medication. - If you take other blood thinner medications your doctor will instruct you when these can safely be resumed. - Do NOT drive for 24 hours. - Do NOT operate machinery such as power tools, lawn mowers, snow blowers, sewing machines, etc. for 24 hours. - Avoid alcoholic beverages and drugs for allergies, nerves, or sleep. - Do NOT stay alone. Do NOT leave your child unattended. - Do NOT make important personal or business decisions or sign any legal documents. - Eat solid foods and drink liquids in smaller amounts than usual until normal appetite returns. If you should experience an upset stomach, liquids high in sugar content (soda, Geraldo-Aid, non-acid juices) are recommended. - You can resume normal activities tomorrow. FOLLOW UP & RECOMMENDATIONS: -Notify the doctor if you have any problems. -Repeat colonoscopy based on polyp pathology -Follow up with PCP. -Office number [phone]. [facility] Work Phone: Reason for referral (narrative)* Diagnostic Procedure Only (Routine) - Pending Review Specialty Diagnoses / Procedures Referred By Gabriela armendariz Referred To Contact [facility] Diagnoses Family history of breast cancer Dense breasts Encounter for screening mammogram for malignant neoplasm of breast Procedures CRISTOBAL SCREENING W GUSTAVO SCREENING DIGITAL BREAST TOMOSYNTHESIS BI SCREENING MAMMOGRAPHY BI 2-VIEW BREAST INC Jean Whitmore, CATTLE DEALER.FURNITURE REPAIRER [address] [place] [address] [facility] [address] [place] [address] Referral ID Status Reason Start Date Expiration Date Visits Requested Visits Authorized [id number] Pending Review Auto-Generat ed Referral 11/26/2022 06/28/2023 1 1 [facility] for referral (narrative)* Diagnostic Procedure Only (Routine) - Closed Specialty Diagnoses / Procedures Referred By Gabriela armendariz Referred To Contact [facility] Diagnoses Family history of breast cancer Dense breasts Encounter for screening mammogram for malignant neoplasm of breast Procedures CRISTOBAL SCREENING W GUSTAVO SCREENING DIGITAL BREAST TOMOSYNTHESIS BI SCREENING MAMMOGRAPHY BI 2-VIEW BREAST INC CAD Jean Hill APRN.FURNITURE REPAIRER [address] [place] [address] [facility] [address] [place] [address] Referral ID Status Reason Start Date Expiration Date V isits Requested Visits Authorized [id number] Closed Auto-Generate d Referral 11/26/2022 06/28/2023 1 1 [facility] for referral (narrative)* Reason *Waiting for appt Referral for screening colonoscopy Diagnosis 1 Screening for colon cancer (Z12.11) Referral Organization [facility] Referring Provider First Name Ryley Referring Provider Last Name Jovan Referring Provider Specialty Internal Me dicine Referred Organization [facility] Gastroenterolo gy Referred Provider Christo Bill Referred Address [address] [place] [phone] Referred Provider Specialty Gastroentero logy Referral Priority Routine General Notes Yvette Ramos 11:10:03 AM >received today, sent [employer] Other [employer] for referral (narrative)* Diagnostic Procedure Only (Routine) - Closed Specialty Diagnoses / Procedures Referred By Gabriela armendariz Referred To Contact BR IMAGING Diagnoses Bilateral fibrocystic breast changes Family history of breast cancer Encounter for screening mammogram for malignant neoplasm of breast Dense breasts Procedures CRISTOBAL SCREENING W GUSTAVO SCREENING BREAST DGTL GUSTAVO UNI/BILAT ADD ON SCREENING MAMMOGRAPHY BI 2-VIEW BREAST INC CAD Winter Edmond PA-C [address] [place] [address] [facility] [address] [place] [address] Referral ID Status Reason Start Date Expiration Date V isits Requested Visits Authorized [id number] Closed Auto-Generate d Referral 05/02/2021 06/01/2022 [address] [facility] for referral (narrative)* Diagnostic Procedure Only (Routine) - Pending Review Specialty Diagnoses / Procedures Referred By Contac t Referred To Contact XR IMAGING Diagnoses Osteoporosis, post menopausal Encounter for long-term (current) use of medications Procedures DXA-AXIAL SKELETON File, [place] [address] [place] [address] [place] [address] Referral ID Status Reason Start Date Expiration Date Visits Requested Visits Authorized [id number] Pending Review Auto-Generat ed Referral 12/08/2023 01/06/2025 1 1 [facility] for referral (narrative)* Diagnostic Procedure Only (Routine) - Authorized Specialty Diagnoses / Procedures Referred By Contac t Referred To Contact BR IMAGING Diagnoses Bilateral fibrocystic breast changes Dense breasts Family history of breast cancer Encounter for screening mammogram for breast cancer History of benign breast biopsy Procedures CRISTOBAL SCREENING W GUSTAVO SCREENING DIGITAL BREAST TOMOSYNTHESIS BI SCREENING MAMMOGRAPHY BI 2-VIEW BREAST INC Mariella Harper PA-C [address] [place] [address] [facility] [address] [place] [address] Referral ID Status Reason Start Date Expiration Date Visits Requested Visits Authorized [id number] Authorized Auto-Generat ed Referral 08/04/2025 1 1 [facility] for visit Narrative* Diagnostic Procedure Only (Routine) - Closed Specialty Diagnoses / Procedures Referred By Contac t Referred To Contact BR IMAGING Diagnoses Family history of breast cancer Dense breasts Encounter for screening mammogram for malignant neoplasm of breast Procedures CRISTOBAL SCREENING W GUSTAVO SCREENING DIGITAL BREAST TOMOSYNTHESIS BI SCREENING MAMMOGRAPHY BI 2-VIEW BREAST INC Jean Whitmore, CATTLE DEALER.FURNITURE REPAIRER [address] [place] [address] [facility] [address] [place] [address] Referral ID Status Reason Start Date Expiration Date V isits Requested Visits Authorized [id number] Closed Auto-Generate d Referral 11/26/2022 06/28/2023 [facility] Diagnostic Procedure Only (Routine) - Closed Specialty Diagnoses / Procedures Referred By Contac t Referred To Contact XR IMAGING Diagnoses Osteoporosis, post menopausal Encounter for long-term (current) use of medications Procedures DXA-AXIAL SKELETON File, [place] [address] [place] [address] [place] [address] Referral ID Status Reason Start Date Expiration Date V isits Requested Visits Authorized [id number] Closed Auto-Generate d Referral 12/08/2023 01/06/2025 1 1 [facility] Medications Administered Section Inactive Administered Medications - up to 3 most recent administrations Medication Order MAR Action Action Date Dose Rate Site acetaminophen 500 mg tab(s) (TYLENOL) 500 mg, ORAL, ONCE, 1 dose, On Jany 12/24/22 at 1430, No more than 4000 mg of acetaminophen should be given per day (FROM ALL SOURCES), If ordered PRN for pain, patient/guardian may elect to receive this medication for higher pain levels INSTEAD of the opioid, if preferred: N/A Given 12/24/2022 2:36 PM EDT 500 mg zoledronic acid 5 mg PREMIX piggyback (RECLAST) 5 mg, INTRAVENOUS, at 200 mL/hr, Administer over 30 Minutes, ONCE, 1 dose, On Jany 12/24/22 at 1430, Hazardous Potential Reproductive Risk Drug: Use appropriate PPE. New Bag/Syringe/Bottle 12/24/2022 2:43 PM EDT 5 mg 200 mL/hr Chief Complaint and Reason for Visit Chief Complaint Screening Family History No Family History Records Found Relationship Condition Age at Onset Recorded Date/T mateo Not Specified Malignant neoplasm of breast Unknown brother Hodgkin lymphoma Unknown grandparent Myocardial infarction Unknown Advance Directives No Advanced Directives Records Found Advance Directive Response Recorded Date/ Time Advance Directives No January 15, 023 12:59pm Summary Purpose Reason for Referral Specialty Diagnoses / Procedures Referred By Gabriela armendariz Referred To Contact MR IMAGING Diagnoses Bilateral fibrocystic breast changes Family history of breast cancer Dense breasts Procedures MRI BREAST WO/W IVCON BILATERAL MRI BREAST WITHOUT&WITH CONTRAST W/CAD BILATERAL Jean Hill, CATTLE DEALER.FURNITURE REPAIRER [address] [place] [id number] [place] [address] Referral ID Status Reason Start Date Expiration Date Visits Requested Visits Authorized [id number] Pending Review Auto-Generat ed Referral 06/10/2024 07/09/2024 1 1 Specialty Diagnoses / Procedures Referred By Gabriela armendariz Referred To Contact BR IMAGING Diagnoses Family history of breast cancer Dense breasts Encounter for screening mammogram for breast cancer Procedures CRISTOBAL SCREENING W GUSTAVO SCREENING DIGITAL BREAST TOMOSYNTHESIS BI SCREENING MAMMOGRAPHY BI 2-VIEW BREAST INC CAD Jean Hill, CATTLE DEALER.FURNITURE REPAIRER [address] [place] [id number] [facility] [address] [place] [address] Referral ID Status Reason Start Date Expiration Date Visits Requested Visits Authorized [id number] Authorized Auto-Generat ed Referral 12/09/2023 07/09/2024 1 1 Additional Source Comments Source Comments (unrecognize d section and content) In the event this informatio n is protected by the Federal Confidentiality of Alcohol and Drug Abuse Patient Records regulations: The Federal rules restrict any use of the information to criminally investigate or prosecute any alcohol or drug abuse patient.[facility] the event this information is protected by the Federal Confidentiality of Alcohol and Drug Abuse Patient Records regulations: The Federal rules restrict any use of the information to criminally investigate or prosecute any alcohol or drug abuse patient.[facility] the event this information is protected by the Federal Confidentiality of Alcohol and Drug Abuse Patient Records regulations: The Federal rules restrict any use of the information to criminally investigate or prosecute any alcohol or drug abuse patient.[facility] the event this information is protected by the Federal Confidentiality of Alcohol and Drug Abuse Patient Records regulations: The Federal rules restrict any use of the information to criminally investigate or prosecute any alcohol or drug abuse patient.[facility] the event this information is protected by the Federal Confidentiality of Alcohol and Drug Abuse Patient Records regulations: The Federal rules restrict any use of the information to criminally investigate or prosecute any alcohol or drug abuse patient.[facility] the event this information is protected by the Federal Confidentiality of Alcohol and Drug Abuse Patient Records regulations: The Federal rules restrict any use of the information to criminally investigate or prosecute any alcohol or drug abuse patient.[facility] the event this information is protected by the Federal Confidentiality of Alcohol and Drug Abuse Patient Records regulations: The Federal rules restrict any use of the information to criminally investigate or prosecute any alcohol or drug abuse patient.[facility] the event this information is protected by the Federal Confidentiality of Alcohol and Drug Abuse Patient Records regulations: The Federal rules restrict any use of the information to criminally investigate or prosecute any alcohol or drug abuse patient.[facility] the event this information is protected by the Federal Confidentiality of Alcohol and Drug Abuse Patient Records regulations: The Federal rules restrict any use of the information to criminally investigate or prosecute any alcohol or drug abuse patient.[facility] the event this information is protected by the Federal Confidentiality of Alcohol and Drug Abuse Patient Records regulations: The Federal rules restrict any use of the information to criminally investigate or prosecute any alcohol or drug abuse patient.[facility] the event this information is protected by the Federal Confidentiality of Alcohol and Drug Abuse Patient Records regulations: The Federal rules restrict any use of the information to criminally investigate or prosecute any alcohol or drug abuse patient.[facility] the event this information is protected by the Federal Confidentiality of Alcohol and Drug Abuse Patient Records regulations: The Federal rules restrict any use of the information to criminally investigate or prosecute any alcohol or drug abuse patient.[facility] the event this information is protected by the Federal Confidentiality of Alcohol and Drug Abuse Patient Records regulations: The Federal rules restrict any use of the information to criminally investigate or prosecute any alcohol or drug abuse patient.[facility] the event this information is protected by the Federal Confidentiality of Alcohol and Drug Abuse Patient Records regulations: The Federal rules restrict any use of the information to criminally investigate or prosecute any alcohol or drug abuse patient.[facility] the event this information is protected by the Federal Confidentiality of Alcohol and Drug Abuse Patient Records regulations: The Federal rules restrict any use of the information to criminally investigate or prosecute any alcohol or drug abuse patient.[facility] the event this information is protected by the Federal Confidentiality of Alcohol and Drug Abuse Patient Records regulations: The Federal rules restrict any use of the information to criminally investigate or prosecute any alcohol or drug abuse patient.[facility] the event this information is protected by the Federal Confidentiality of Alcohol and Drug Abuse Patient Records regulations: The Federal rules restrict any use of the information to criminally investigate or prosecute any alcohol or drug abuse patient.[facility] the event this information is protected by the Federal Confidentiality of Alcohol and Drug Abuse Patient Records regulations: The Federal rules restrict any use of the information to criminally investigate or prosecute any alcohol or drug abuse patient.[facility] the event this information is protected by the Federal Confidentiality of Alcohol and Drug Abuse Patient Records regulations: The Federal rules restrict any use of the information to criminally investigate or prosecute any alcohol or drug abuse patient.[facility] the event this information is protected by the Federal Confidentiality of Alcohol and Drug Abuse Patient Records regulations: The Federal rules restrict any use of the information to criminally investigate or prosecute any alcohol or drug abuse patient.[facility] the event this information is protected by the Federal Confidentiality of Alcohol and Drug Abuse Patient Records regulations: The Federal rules restrict any use of the information to criminally investigate or prosecute any alcohol or drug abuse patient.[facility] the event this information is protected by the Federal Confidentiality of Alcohol and Drug Abuse Patient Records regulations: The Federal rules restrict any use of the information to criminally investigate or prosecute any alcohol or drug abuse patient.[facility] the event this information is protected by the Federal Confidentiality of Alcohol and Drug Abuse Patient Records regulations: The Federal rules restrict any use of the information to criminally investigate or prosecute any alcohol or drug abuse patient.[facility] the event this information is protected by the Federal Confidentiality of Alcohol and Drug Abuse Patient Records regulations: The Federal rules restrict any use of the information to criminally investigate or prosecute any alcohol or drug abuse patient.[facility] Reason for Visit (unrecogniz ed section and content) Reason Comments Infusion Specialty Diagnoses / Procedures Referred By Contac t Referred To Contact Diagnoses Osteoporosis, post menopausal Procedures INJECTION, ZOLEDRONIC ACID, 1 MG [place], [place] [address] [place] [address] [facility] Main [address] [address] Referral ID Status Reason Start Date Expiration Date V isits Requested Visits Authorized [id number] Authorized 12/13/2023 09/19/2024 99 99 Reason Comments 6 Month Exam Specialty Diagnoses / Procedures Referred By Contac t Referred To Contact Rheumatology Diagnoses Osteoporosis without current pathological fracture, unspecified osteoporosis type Procedures CONSULT TO RHEUMATOLOGY METABOLIC BONE OFFICE/OUTPATIENT [facility] MDM 60-74 MINUTES Jean Hill, CATTLE DEALER.FURNITURE REPAIRER [address] [place] [address] Referral ID Status Reason Start Date Expiration Date V isits Requested Visits Authorized [id number] Closed PCP Requested Referral 06/03/2022 06/03/2023 1 1 Reason Comments Outside Labs Results Reason Comments Recheck Reason Comments Appointment Reason Comments reclast infusion Referral ID Status Reason Start Date Expiration Date V isits Requested Visits Authorized [id number] Authorized 12/10/2022 09/19/2023 99 99 Reason Comments Outside Lab Results Reason Comments 6 Month Exam Reason Comments Radiology Mammogram Specialty Diagnoses / Procedures Referred By Contac t Referred To Contact BR IMAGING Diagnoses Bilateral fibrocystic breast changes Family history of breast cancer Encounter for screening mammogram for malignant neoplasm of breast Dense breasts Procedures CRISTOBAL SCREENING W GUSTAVO SCREENING BREAST DGTL GUSTAVO UNI/BILAT ADD ON SCREENING MAMMOGRAPHY BI 2-VIEW BREAST INC CAD Winter Edmond PA-C [address] [place] [address] [facility] [address] [place] [address] Referral ID Status Reason Start Date Expiration Date V isits Requested Visits Authorized [id number] Closed Auto-Generate d Referral 05/02/2021 06/01/2022 1 1 Reason Comments Radiology Mammogram Specialty Diagnoses / Procedures Referred By Contac t Referred To Contact BR IMAGING Diagnoses Family history of breast cancer Dense breasts Encounter for screening mammogram for breast cancer Procedures CRISTOBAL SCREENING W GUSTAVO SCREENING DIGITAL BREAST TOMOSYNTHESIS BI SCREENING MAMMOGRAPHY BI 2-VIEW BREAST INC CAD Jean Hill, CATTLE DEALER.FURNITURE REPAIRER [address] [place] [address] [facility] [address] [place] [address] Referral ID Status Reason Start Date Expiration Date V isits Requested Visits Authorized [id number] Closed Auto-Generate d Referral 12/09/2023 07/09/2024 1 1 Reason Comments 6 Month Exam With Mammogram Reason Comments Radiology MRI Specialty Diagnoses / Procedures Referred By Gabriela armendariz Referred To Contact MR IMAGING Diagnoses Bilateral fibrocystic breast changes Family history of breast cancer Dense breasts Procedures MRI BREAST WO/W IVCON BILATERAL MRI BREAST WITHOUT&WITH CONTRAST W/CAD BILATERAL Jean Hill, CATTLE DEALER.FURNITURE REPAIRER [address] [place] [address] [place] [address] Referral ID Status Reason Start Date Expiration Date V isits Requested Visits Authorized [id number] Closed Auto-Generate d Referral 06/14/2024 07/28/2024 1 1 Care Teams (unrecognized sec tion and content) Improvement Lead Relationship Specialty Start Date End Date [address] [address] PCP - General 03/25/05 Improvement Lead Relationship Specialty Start Date End Date [address] [address] PCP - General 03/25/05 Improvement Lead Relationship Specialty Start Date End Date Ryley Newman, DO [address] [place] [address] PCP - General Internal Medicine 11/24/22 Improvement Lead Relationship Specialty Start Date End Date Ryley Newman, DO [address] [place] [address] PCP - General Internal Medicine 11/24/22 Improvement Lead Relationship Specialty Start Date End Date Ryley Newman, DO [address] [place] [address] PCP - General Internal Medicine 11/24/22 Improvement Lead Relationship Specialty Start Date End Date Ryley Newman, DO [address] [place] [facility] [place] [address] PCP - General Internal Medicine 11/24/22 Improvement Lead Relationship Specialty Start Date End Date Ryley Newman, DO [address] [place] [facility] [place] [address] PCP - General Internal Medicine 11/24/22 Improvement Lead Relationship Specialty Start Date End Date Ryley Newman, DO [address] [place] [facility] [place] [address] PCP - General Internal Medicine 11/24/22 Improvement Lead Relationship Specialty Start Date End Date Ryley Newman Faith, DO [address] [place] [facility] [address] PCP - General Internal Medicine 11/24/22 Improvement Lead Relationship Specialty Start Date End Date Ryley Newman, DO [address] [place] [facility] [address] PCP - General Internal Medicine 11/24/22 Improvement Lead Relationship Specialty Start Date End Date Jovan Ryley Faith, DO [address] [place] [facility] [place] [address] PCP - General Internal Medicine 11/24/22 Team Status: Active Member Role Status Dates Ryley Newman DO Primary Care Provider Active Team Status: Inactive Member Role Status Dates Thony Cooper MD Attending Provider Active Ryley Newman DO Primary Care Provider Active Improvement Lead Relationship Specialty Start Date End Date Ryley Newman DO PCP - General Internal Medicine 11/24/22 Improvement Lead Relationship Specialty Start Date End Date Yohannes Newman [address] [place] [address] PCP - General 03/25/05 11/23/22 Improvement Lead Relationship Specialty Start Date End Date Ryley Newman DO PCP - General Internal Medicine 11/24/22 Improvement Lead Relationship Specialty Start Date End Date Ryley Newman DO PCP - General Internal Medicine 11/24/22 Improvement Lead Relationship Specialty Start Date End Date Ryley Newman DO PCP - General Internal Medicine 11/24/22 Improvement Lead Relationship Specialty Start Date End Date Ryley Newman DO PCP - General Internal Medicine 11/24/22 Improvement Lead Relationship Specialty Start Date End Date Ryley Newman DO PCP - General Internal Medicine 11/24/22 Improvement Lead Relationship Specialty Start Date End Date Ryley Newman DO PCP - General Internal Medicine 11/24/22 Improvement Lead Relationship Specialty Start Date End Date Ryley Newman DO PCP - General Internal Medicine 11/24/22 Improvement Lead Relationship Specialty Start Date End Date Ryley Newman DO PCP - General Internal Medicine 11/24/22 Improvement Lead Relationship Specialty Start Date End Date Ryley Newman DO PCP - General Internal Medicine 11/24/22 Improvement Lead Relationship Specialty Start Date End Date Ryley Newman DO PCP - General Internal Medicine 11/24/22 INFORMATION SOURCE (unrecogn ized section and content) DATE CREATED AUTHOR 01/30/2023 [facility] DATE CREATED AUTHOR AUTHOR'S ORGANIZ ATION 01/31/2023 [facility] DATE CREATED AUTHOR AUTHOR'S ORGANIZ ATION 03/17/2024 [facility] EPIC DATE CREATED AUTHOR AUTHOR'S ORGANIZ ATION 01/05/2025 [facility] Administered Medications - up to 3 most recent administrations Administered Medications (un recognized section and content) Medication Order MAR Action Action Date Dose Rate Site acetaminophen 500 mg tab(s) (TYLENOL) 500 mg, ORAL, ONCE, 1 dose, On Wed01/05/24 at 1430, No more than 4000 mg of acetaminophen should be given per day (FROM ALL SOURCES), If ordered PRN for pain, patient/guardian may elect to receive this medication for higher pain levels INSTEAD of the opioid, if preferred: N/A Given 01/05/2024 2:44 PM EDT 500 mg zoledronic acid 5 mg PREMIX piggyback (RECLAST) 5 mg, INTRAVENOUS, at 200 mL/hr, Administer over 30 Minutes, ONCE, 1 dose, On Wed01/05/24 at 1430, Hazardous Potential Reproductive Risk Drug: Use appropriate PPE. New Bag/Syringe/Bottle 01/05/2024 2:48 PM EDT 5 mg 200 mL/hr FOR RECORDS PERTAINING TO PATIENTS WHO ARE OR HAVE BEEN ENROLLED IN A CHEMICAL DEPENDENCY/SUBSTANCEABUSE PROGRAM, SOME INFORMATION MAY BE OMITTED. This clinical summary was aggregated from multiple sources. Caution should be exercised in using it in the provision of clinical care. This summary normalizes information from multiple sources, and as a consequence, information in this document may materially change the coding, format and clinical context of patient data. In addition, data may be omitted in some cases. CLINICAL DECISIONS SHOULD BE BASED ON THE PRIMARY CLINICAL RECORDS. [employer] [facility]. provides no warranty or guarantee of the accuracy or completeness of information in this document.
[2025-01-06 08:38] LABS: Calcium 9.3 mg/dL (8.5-10.1); Estimated GFR (African America >60 (>=60 mL/min/1.73m^2); Estimated GFR (Non-African Ame 54 (>=60 mL/min/1.73m^2)
== END 2025-01-06 07:46 | disposition home or self-care (01) ==
LOC: LAB 07:46
PROVIDERS: PCP Internal Medicine
DX: M81.0 Age-related osteoporosis without current pathological fracture (principal); Z79.899 Other long term (current) drug therapy
CPT/HCPCS: 36415; 82306; 82310; 82523; 82565